=== PATIENT | female | born 1950 | race Caucasian/White ===

== ENCOUNTER → 2017-01-21 | Outpatient (CLI) | payer BC ==
[~2017-01-21] MED LIST: ACET-1256 PO; CTP/1 PO; DYZ PO; LEVO75TA PO; MCRK20 PO; METH2.5T PO; METO100T7 PO; NSP/500 PO; ULT/50 PO
--- NOTE | 2017-01-21 16:08 | MAMMOGRAPHY REPORT ---
BILATERAL DIGITAL SCREENING MAMMOGRAM WITH CAD: 01/21/2017 CLINICAL HISTORY: Routine screening. Patient has no complaints. TECHNIQUE: Bilateral CC and MLO views were obtained. Repeat MLO views were also obtained. Current tim guardado was also evaluated with a Computer Aided Detection (CAD) system. COMPARISON: Comparison is made to exams dated: 01/21/2016 mammogram, 01/17/2015 mammogram, 01/16/2014 m ammogram, 01/13/2013 mammogram, 01/13/2012 mammogram, and 01/10/2011 mammogram - [facility] enter. BREAST COMPOSITION: There are scattered areas of fibroglandular density in both breasts. FINDINGS: There is a 7 mm focal asymmetry in the upper outer middle to anterior right breast, for wh ich additional spot compression tomosynthesis views and possibly ultrasound are recommended. No other suspicious mass, architectural distortion or cluster of microcalcifications is seen bilatera llmelinda. IMPRESSION: ACR BI-RADS CATEGORY 0: INCOMPLETE EVALUATION: NEED ADDITIONAL IMAGING EVALUATION The 7 mm focal asymmetry in the upper outer right breast needs additional evaluation. The patient will be called to schedule an appointment. Approximately 10% of breast cancers are not detected with mammography. A negative mammographic report should not delay biopsy if a clinically suggestive mass is present. Marla Bryant M.D. ay/:01/21/2017 13:31:54 Instrument Repair Specialist: Bhumi FRANZ(Roland)([place])([place]), [facility] letter sent: Addl Imaging 0 BI-RADS Code: ACR BI-RADS Category 0: Incomplete Evaluation: Need Additional Imaging Evaluation
== END | disposition home or self-care (01) ==
LOC: C.MAMM 13:03
PROVIDERS: ATTEND Family Medicine
DX: Z12.31 Encounter for screening mammogram for malignant neoplasm of breast (principal); N64.89 Other specified disorders of breast

== ENCOUNTER → 2017-01-29 | Outpatient (CLI) | payer BC ==
--- NOTE | 2017-01-29 13:47 | MAMMOGRAPHY REPORT ---
UNILATERAL RIGHT DIGITAL DIAGNOSTIC MAMMOGRAM TOMOSYNTHESIS AND TARGETED RIGHT ULTRASOUND: 01/29/2017 CLINICAL HISTORY: 66 year old woman called back from screening mammography for a 6 mm focal asymmetry in the upper outer middle one third of the right breast. TECHNIQUE: Spot compression right CC and MLO 2-D digital and tomosynthesis images were obtained. COMPARISON: Comparison is made to exams dated: 01/21/2017 mammogram, 01/21/2016 mammogram, 01/17/2015 m ammogram, 01/16/2014 mammogram, 01/20/2013 mammogram, and 01/13/2013 mammogram - [facility] enter. BREAST COMPOSITION: There are scattered areas of fibroglandular density in the right breast. FINDINGS: The spot compression right CC view and corresponding tomosynthesis images demonstrate a 7. 9 mm asymmetry with irregular and indistinct borders in the middle one third of the right breast yanci g the posterior nipple line (tomosynthesis slice 28), located 6 cm from the nipple. There is a vague possible correlate in the superior middle one third of the right breast on the spot compression MLO view (tomosynthesis slice 21), measuring 6.5 mm. No definite architectural distortion or associated calcification. Further evaluation with ultrasound was performed. Targeted ultrasound was performed throughout the right breast with particular attention to the 12:00, retroareolar, 6:00, 11:00 and 7:00 axes. There is a nodular isoechoic and hypoechoic horizontally o riented lesion in the 12:00 right breast, 1 cm from the nipple, measuring 5.4 x 2.4 x 4.3 mm. This c ould represent focal duct ectasia and it is unclear if it correlates with the vague mammographic asym metry. IMPRESSION: ACR BI-RADS CATEGORY 0: INCOMPLETE EVALUATION: NEED ADDITIONAL IMAGING EVALUATION, TARG ETED ULTRASOUND ACR BI-RADS CATEGORY 0: INCOMPLETE EVALUATION: NEED ADDITIONAL IMAGING EVALUATION 1. There is a vague 7.9 mm mammographic asymmetry in the middle one third of the breast, along the p osterior nipple line or slightly lateral to the posterior nipple line on the CC view, thought to proj ect superiorly based on the MLO view. It is difficult to tell whether this simply represents an loni nd of glandular tissue or a new lesion. 2. Targeted ultrasound demonstrates possible duct ectasia in the 12:00 right breast and it is unclea r if this could represent the sonographic correlate. 3. Overall, given the vague mammographic and sonographic findings but slight increased mammographic prominence of the asymmetry comparing to prior mammograms, this asymmetry remains indeterminate and f urther evaluation with a contrast-enhanced breast MRI is recommended to exclude the possibility of a suspicious enhancing mass. These results and recommendations were discussed with the patient at the time of the exam. Approximately 10% of breast cancers are not detected with mammography. A negative mammographic report should not delay biopsy if a clinically suggestive mass is present. Marla Bryant M.D. ay/:01/29/2017 12:26:27 Flight Attendant Inflight Services: Paulina New, [facility] letter sent: Addl Imaging 0 BI-RADS Code: ACR BI-RADS Category 0: Incomplete Evaluation: Need Additional Imaging Evaluation Ult rasound BI-RADS: ACR BI-RADS Category 0: Incomplete Evaluation: Need Additional Imaging Evaluation
== END | disposition home or self-care (01) ==
LOC: C.MAMM 09:47
PROVIDERS: ATTEND Family Medicine
DX: N64.89 Other specified disorders of breast (principal)

== ENCOUNTER → 2017-02-13 | Outpatient (CLI) | payer BC ==
[~2017-02-13] MED LIST changes: +GADAVIST IV PRN
--- NOTE | 2017-02-13 15:30 | MAMMOGRAPHY REPORT ---
BREAST MRI OF BOTH BREASTS : 02/13/2017 CLINICAL HISTORY: 66-year-old woman called back from screening mammography for a vague 7 mm asymmetry in the lateral right breast, that persist with additional spot compression tomosynthesis views but n o definite sonographic correlate was identified. COMPARISON: Comparison is made to exams dated: 01/29/2017 ultrasound, 01/21/2017 mammogram, 01/21/2016 m ammogram, 01/29/2017 mammogram, 01/17/2015 mammogram, and 01/16/2014 mammogram - [facility] nter. TECHNIQUE: Using a 1.5 Gisell magnet and dedicated breast coil, multisequence axial images were obtain ed through the breasts. After uneventful IV administration of 8.5 mL of Gadavist, dynamic multiphase contrast-enhanced axial images, and sagittal postcontrast were obtained. Temporal subtraction axial images and 3-D MIP images are provided. Everything was then reviewed on a 3-D workstation, [employer]. FINDINGS: There is minimal background parenchymal enhancement of the breasts, with a few scattered en hancing oval foci bilaterally. There is no evidence of a suspicious enhancing mass, suspicious non-m ass enhancement, suspicious kinetics or focal area of architectural distortion in the breasts, with p articular attention to the lateral right breast in the area of mammographic asymmetry. Therefore, th is asymmetry is considered benign and no further close follow-up is needed at this time. Recommend f ollow-up at time of next annual screening mammogram. There are mildly plump bilateral axillary lymph nodes, that maintain normal morphology. Incidental note is made of a lobulated, 2.3 x 2.1 cm mass in the right anterior thorax. Given that t he exam is not optimized 2 view the lungs it is unsure if it is pleural-based or within the lung itse lf. It is T2 hyperintense and not significantly enhancing. Although this could represent loculated pleural fluid, a cystic neoplasm cannot be excluded and definitive characterization with a chest CT i s recommended. IMPRESSION: ACR BI-RADS CATEGORY 2: BENIGN 1. No evidence of a suspicious enhancing mass or suspicious non-mass enhancement in the lateral righ t breast to correspond to the mammographic asymmetry. Therefore this asymmetry is considered benign and no further close follow-up is needed at this time. Return to annual mammogram screening schedule is recommended. 2. Incidental note is made of a 2.3 x 2.1 cm T2 hyperintense mass in the right hemithorax. Although this could represent loculated pleural fluid, a cystic neoplasm cannot be excluded and definitive sarthak racterization with a chest CT is recommended. The patient will receive written notification of the results. Marla Bryant M.D. ay/:02/13/2017 14:57:13 Renewable Energy Trader: rehab aid, [facility] letter sent: Normal 1/2 BI-RADS Code: ACR BI-RADS Category 2: Benign
== END | disposition home or self-care (01) ==
LOC: C.MRI 09:18
PROVIDERS: ATTEND Family Medicine
DX: R92.8 Other abnormal and inconclusive findings on diagnostic imaging of breast (principal)

== ENCOUNTER → 2017-02-17 | Outpatient (CLI) | payer BC ==
[~2017-02-17] MED LIST changes: -GADAVIST IV PRN
--- NOTE | 2017-02-17 12:39 | DIAGNOSTIC IMAGING REPORT ---
ADDENDUM Correlation is now made with an MRI of the breasts dated 02/13/2017. The basilar nodular density described on MRI is not seen on routine imaging. This potentially is secondary to overlap artifact. As result, CT of the chest is recommended to exclude a solitary pulmonary lesion. This report was telephoned to Dr. Wallis Electronically signed by: Lukas Dean M.D. 02/18/2017 12:10 PM Dictated Date/Time: 02/18/2017 12:08 PM ORIGINAL REPORT CHEST 2 VIEWS ROUTINE CLINICAL HISTORY: LOCALIZED SWELLING, MASS AND LUMP, TRUNK pain COMPARISON STUDY: No previous studies for comparison. FINDINGS: The bones soft tissues and hemidiaphragms are normal. The cardiomediastinal silhouette is normal. The lungs are clear. The pulmonary vasculature is normal. IMPRESSION: Negative chest. The above report was generated using voice recognition software. It may contain grammatical, syntax or spelling errors. Electronically signed by: Lukas Dean M.D. 02/17/2017 12:37 PM Dictated Date/Time: 02/17/2017 12:37 PM
== END | disposition home or self-care (01) ==
LOC: C.RAD1850 12:22
PROVIDERS: ATTEND Family Medicine
DX: R22.2 Localized swelling, mass and lump, trunk (principal)

== ENCOUNTER → 2017-02-23 | Outpatient (CLI) | payer BC ==
[~2017-02-23] MED LIST changes: +OPTIRAY 320 IV PRN
--- NOTE | 2017-02-23 12:38 | DIAGNOSTIC IMAGING REPORT ---
(CHEST) THORAX WITH CLINICAL HISTORY: 66 years-old Female presenting with MASS SEEN ON MRI. TECHNIQUE: Multidetector CT imaging of the chest was performed after the administration of intravenous contrast. IV contrast: None. A dose lowering technique was used consistent with the principles of ALARA (as low as reasonably achievable). COMPARISON: MR from 02/13/2017. CT DOSE (mGy.cm): The estimated cumulative dose is 282.83 mGy.cm. FINDINGS: Motor Route Carrier topogram: Unremarkable. On soft tissue windows, normal thyroid and thoracic inlet. No axillary, supraclavicular, hilar, or mediastinal lymphadenopathy. Normal aorta. Mildly enlarged heart. Minimal coronary artery calcification. No pericardial or pleural effusion. Suggestion of hepatic steatosis. Post cholecystectomy changes. On lung windows, no focal infiltrate or nodule. Airways patent. On bone windows, mild degenerative changes of thoracic spine. IMPRESSION: 1. No acute intrathoracic pathology. The previously noted apparent nodule in the lungs on breast MRI was consistent with aliasing artifact. Electronically signed by: Segundo Silva M.D. 02/23/2017 12:36 PM Dictated Date/Time: 02/23/2017 12:32 PM
== END | disposition home or self-care (01) ==
LOC: C.CTS 12:03
PROVIDERS: ATTEND Family Medicine
DX: R22.2 Localized swelling, mass and lump, trunk (principal)